=== PATIENT | female | born 1995 | race American Indian/Alaskan Native ===

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

== ENCOUNTER 2017-08-01 18:10 | Outpatient (CLI) | payer MEDICAID ==
[2017-08-01 19:11] VITALS: BP 97/59
== END 2017-08-01 20:40 | disposition home or self-care (01) ==
LOC: TRG 18:10
PROVIDERS: ATTEND Obstetrics & Gynecology Gynecology
DX: O47.1 False labor at or after 37 completed weeks of gestation (principal); Z87.891 Personal history of nicotine dependence; Z3A.38 38 weeks gestation of pregnancy
CPT/HCPCS: 59025

== ENCOUNTER 2018-06-24 13:05 | Emergency (ER) | payer SELFPAY ==
[2018-06-24 13:15] VITALS: BP 114/69
--- NOTE | 2018-06-24 20:15 | Emergency Department Report ---
Chief Complaint: Medical Clearance Stated Complaint: STD CHECK Time Seen by Provider: 06/24/18 19:15 - HPI History of Present Illness: This is a 22-year-old female here requesting in checkup for STD. She says she has possible exposed but denies any symptoms. She is here with her friend/ boyfriend. - ROS Review of Systems: Requested STD check with possible exposure, negative vaginal discharge, negative for vaginal bleeding, negative abdominal ,back pain., Negative fever or chills, negative hematuria, negative nausea or vomiting. She reports normal menses. - Exam Vital Signs: Vital Signs 06/24/18 13:12 Temperature 98.2 F Pulse Rate 103 H Respiratory 16 Rate Blood Pressure 114/69 O2 Sat by Pulse 100 Oximetry Vital Signs 06/24/18 06/24/18 13:12 20:15 Temperature 98.2 F Pulse Rate 103 H 92 H Respiratory 16 Rate Blood Pressure 114/69 O2 Sat by Pulse 100 Oximetry Physical Exam: This is a 22-year-old female well-nourished well-developed in no acute distress. Abdomen: Head is palpated in all quadrants, no guarding or rebound tenderness no CVA tenderness. Lungs: Clear Auscultated bilaterally no rhonchi wheezes or rales MSE screening note: Focused history and physical exam performed. Due to findings the following was ordered: ED Medical Decision Making - Medical Decision Making Patient here requesting an STD test then due to possible exposure without any symptoms. I discussed the patient that I will give her multiple resources that she can follow-up for STD testing and treatment but based on my physical findings she does not have an emergent problem and will need to follow up with [facility] for [facility] and treatment for STD. Patient stable. Her vital signs of sepsis a febrile and she is nontoxic in appearance. She agrees to follow up with health department. She was given resources and discharged from ED in stable condition. ED Disposition for MSE Clinical Impression: Concern about STD in female without diagnosis Disposition: -01 TO HOME OR SELFCARE Is pt being admited?: No Does the pt Need Aspirin: No Condition: Stable Instructions: Safe Sex (ED), Sexually Transmitted Diseases (ED) Additional Instructions: Please practice safe sex Follow-up with multiple agents is given to you for STD testing and treatment if needed Referrals: [facility] [Outside] - 2-3 Days [facility] [Outside] - 2-3 Days [facility] [Outside] - 2-3 Days
== END 2018-06-24 20:18 | disposition home or self-care (01) ==
LOC: ED 13:05
DX: Z11.3 Encounter for screening for infections with a predominantly sexual mode of transmission (principal)
CPT/HCPCS: 99282